=== PATIENT | male | born 1975 | race Hispanic/Latino ===

== ENCOUNTER 2017-01-14 05:18 | Observation (INO) | payer OTHER ==
--- NOTE | 2017-01-14 06:11 | ED PDOC ---
Upper Extremity Pain/Injury Time Seen by Provider: 01/14/17 05:30 Chief Complaint (Nursing): Upper Extremity Problem/Injury Chief Complaint (Provider): left elbow pain History Per: Patient History/Exam Limitations: no limitations Onset/Duration Of Symptoms: Hrs Current Symptoms Are (Timing): Still Present Additional Complaint(s): 41yo male with hx of right shoulder surgery presents to the ED with c/o left elbow pain. 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 Pain became severe overnight so he called Dr. Morrissey who instructed patient to present to the ED. Patient has had MRI of elbow. Denies any other medical complaints. Past Medical History Reviewed: Historical Data, Nursing Documentation, Vital Signs Vital Signs: Last Vital Signs Temp 97.5 F L 01/14/17 05:38 Pulse 65 01/14/17 05:38 Resp 16 01/14/17 05:38 BP 131/85 01/14/17 05:38 Pulse Ox 99 01/14/17 05:38 - Medical History PMH: No Chronic Diseases - Surgical History Other surgeries: right shoulder - Family History Family History: States: No Known Family Hx - Social History Current smoker - smoking cessation education provided: No Ex-Smoker (has not smoked in the last 12 months): Yes Alcohol: None Drugs: Denies - Home Medications Home Medications: Ambulatory Orders Medication Instructions Recorded oxyCODONE/Acetaminophen [Percocet 1 ea PO Q6 PRN #20 tab 01/14/17 5/325 mg Tab] - Allergies Allergies/Adverse Reactions: Allergies Allergy/AdvReac Type Severity Reaction Status Date / Time No Known Allergies Allergy Verified 01/14/17 05:45 Review of Systems ROS Statement: Except As Marked, All Systems Reviewed And Found Negative Musculoskeletal: Positive for: Other (left elbow pain ) Physical Exam - Reviewed Nursing Documentation Reviewed: Yes Vital Signs Reviewed: Yes - Physical Exam Appears: Positive for: Well, No Acute Distress Head Exam: Positive for: ATRAUMATIC, NORMAL INSPECTION, NORMOCEPHALIC Skin: Positive for: Normal Color, Warm, Dry Eye Exam: Positive for: Normal appearance Neck: Positive for: Normal, Painless ROM, Supple Cardiovascular/Chest: Positive for: Regular Rate, Rhythm. Negative for: Murmur , Tachycardia Respiratory: Positive for: Normal Breath Sounds. Negative for: Wheezing, Respiratory Distress Gastrointestinal/Abdominal: Positive for: Normal Exam, Soft. Negative for: Tenderness Extremity: Positive for: Normal ROM. Negative for: Deformity, Swelling Neurologic/Psych: Positive for: Alert, Oriented - Laboratory Results Result Diagrams: 01/14/17 06:20 01/14/17 06:20 - ECG O2 Sat by Pulse Oximetry: 99 Pulse Ox Interpretation: Normal (RA) Medical Decision Making Medical Decision Makin: Impression: left elbow pain Plan: Type and screen Labs EKG ortho consult reassess 06: Dr. Morrissey paged twice. Provider was advised that Dr. Morrissey called earlier stating patient will be operated on today. 624: Case discussed with Dr. Cervantes (hospitalist) for admission to med-surg. Dr. Cervantes accepted the patient. Scribe Attestation: Documented by Ki Alvarez acting as a scribe for Dann Solis MD. Provider Scribe Attestation: All medical record entries made by the Scribe were at my direction and personally dictated by me. I have reviewed the chart and agree that the record accurately reflects my personal performance of the history, physical exam, medical decision making, and the department course for this patient. I have also personally directed, reviewed, and agree with the discharge instructions and disposition. Disposition - Clinical Impression Clinical Impression: Elbow pain - Patient ED Disposition Is Patient to be Admitted: Yes Counseled Patient/Family Regarding: Studies Performed, Diagnosis - Disposition Disposition Time: 06:25 Condition: FAIR
[2017-01-14 06:39] LABS: BASO # 0.1 K/uL (0.0-0.2); BASO % 0.8 % (0.0-2.0); EOS # 0.7 K/uL (0.0-0.7); EOS % 8.1 % (0.0-4.0); HEMATOCRIT 46.6 % (35.0-51.0); LYMPH # 2.1 K/uL (1.0-4.3); LYMPH % 25.6 % (20.0-40.0); MEAN CELL VOLUME 87.4 fl (80.0-94.0); MEAN CORPUSCULAR HEMOGLOBIN 29.3 pg (27.0-31.0); MEAN CORPUSCULAR HGB CONC 33.5 g/dL (33.0-37.0); MEAN PLATELET VOLUME 10.7 fl (7.2-11.7); MONO # 0.5 K/uL (0.0-0.8); MONO % 6.2 % (0.0-10.0); NEUT % 59.3 % (50.0-75.0); RED CELL DISTRIBUTION WIDTH 12.8 % (11.5-14.5); WHITE BLOOD COUNT 8.4 K/uL (4.8-10.8)
[2017-01-14 06:52] LABS: ALB/GLOB RATIO 1.5 (1.0-2.1); ALKALINE PHOSPHATASE 64 U/L (38-126); ALT/SGPT 55 U/L (21-72); AST/SGOT 47 U/L (17-59); BILIRUBIN,TOTAL 0.6 mg/dl (0.2-1.3); BLOOD UREA NITROGEN 26 mg/dl (9-20); CALCIUM 9.6 mg/dL (8.4-10.2); CARBON DIOXIDE 27 mmol/L (22-30); CHLORIDE 106 mmol/L (98-107); GFR AFRICAN-AMERICAN > 60; GLUCOSE,RANDOM 95 mg/dL (75-110); POTASSIUM 4.4 MMOL/L (3.6-5.0); SODIUM 142 mmol/l (132-148); TOTAL PROTEIN 7.8 G/DL (6.3-8.2)
[2017-01-14] MEDS ORDERED: Absorbable Gelatin Sponge Size 100 ONE (07:04)
[2017-01-14] MEDS ORDERED: Bupivacaine 0.5% Inj(30mL) ONE (07:04)
[2017-01-14] MEDS ORDERED: Lidocaine 1% Inj (20ml) ONE (07:04)
[2017-01-14] MEDS ORDERED: Thrombin Topical 5,000 IU Spray Kit ONE (07:04)
[2017-01-14] MEDS ORDERED: Bacitracin Ointment 30 GM TUBE ONE (07:05)
[2017-01-14] MEDS ORDERED: Propofol 10 mg/ml Inj (20 ML) ONE ×2 (07:09→07:50)
[2017-01-14 07:11] LABS: PARTIAL THROMBOPLASTIN TIME 32.7 Seconds (25.6-37.1)
[2017-01-14] MEDS ORDERED: ePHEDrine 50 mg/ml Inj ONE (07:11)
[2017-01-14] MEDS ORDERED: Midazolam 2 MG/2 ML VIAL ONE (07:11)
[2017-01-14] MEDS ORDERED: Rocuronium 10 mg/ml (5 ml) ONE (07:11)
[2017-01-14] MEDS ORDERED: Succinylcholine 200 mg/10 ml Inj IV ONE (07:12)
--- NOTE | 2017-01-14 07:30 | ED PDOC ---
Upper Extremity Pain/Injury Time Seen by Provider: 01/14/17 05:44 Chief Complaint (Nursing): Upper Extremity Problem/Injury Additional Complaint(s): 41 YO M w/ no significant PMH is here today for pain in his right bicep region on his left arm. 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 At that point he was in pain and took some alieve. He went and saw Dr. Caceres on which examined him. Patient has been NPO since last night PMH PSH: Right sholder:> Right rotator cuff injury, Labrum tear Allergy: NKDA Medicine: None F/H: FH of DM in his father S/H: Reformed smoker Past Medical History Vital Signs: Last Vital Signs Temp 97.5 F L 01/14/17 05:38 Pulse 65 01/14/17 05:38 Resp 16 01/14/17 05:38 BP 131/85 01/14/17 05:38 Pulse Ox 99 01/14/17 06:53 - Medical History PMH: No Chronic Diseases Denies: Kidney Stones, Chronic Kidney Disease - Surgical History Other surgeries: right shoulder - Family History Family History: States: No Known Family Hx - Social History Current smoker - smoking cessation education provided: No Ex-Smoker (has not smoked in the last 12 months): Yes Alcohol: None Drugs: Denies - Allergies Allergies/Adverse Reactions: Allergies Allergy/AdvReac Type Severity Reaction Status Date / Time No Known Allergies Allergy Verified 01/14/17 05:45 - Laboratory Results Result Diagrams: 01/14/17 06:20 01/14/17 06:20 - ECG O2 Sat by Pulse Oximetry: 99 Disposition - Disposition Disposition Time: 06:25
[2017-01-14] MEDS ORDERED: Scopolamine 1.5 mg/24 hr Patch TD ONE (07:40)
[2017-01-14] MEDS ORDERED: Lactated Ringer's 1,000 ML IV ONE ×2 (07:45→10:00)
[2017-01-14] MEDS ORDERED: Dexamethasone 4 mg/1 ml ONE (08:03)
[2017-01-14] MEDS ORDERED: Desflurane Inhalation Anesthetic Liq (240 ml) ONE (09:06)
--- NOTE | 2017-01-14 09:50 | CP.PCM.HP ---
<AdwoaKeaton - Last Filed: 01/14/17 10:10> History of Present Illness - History of Present Illness History of Present Illness: 41 YO M w/ no significant PMH is here today for pain in his left bicep region on his left arm. Progressive arm pain which failed outpatient therapy. On patient was lifting a large platform at home approx 350 pounds when he noticed a snap in his left bicep region. At that point he was in pain and took some alieve. He went and saw Dr. Caceres on 01/15/17 which examined him. Patient has been NPO since last night. PMH: None PSH: Right sholder:> Right rotator cuff injury, Labrum tear Allergy: NKDA Medicine: None F/H: FH of DM in his father S/H: Reformed smoker Present on Admission - Present on Admission Any Indicators Present on Admission: No Review of Systems - Review of Systems All systems: reviewed and no additional remarkable complaints except Past Patient History - Past Medical History & Family History Past Medical History?: No - Past Social History Smoking Status: Former Smoker - PULMONARY Hx Respiratory Disorders: No - NEUROLOGICAL Hx Neurological Disorder: No - HEENT Hx HEENT Problems: No - RENAL Hx Chronic Kidney Disease: No Hx Kidney Stones: No - ENDOCRINE/METABOLIC Hx Endocrine Disorders: No - HEMATOLOGICAL/ONCOLOGICAL Hx Blood Disorders: No - INTEGUMENTARY Hx Dermatological Problems: No - MUSCULOSKELETAL/RHEUMATOLOGICAL Hx Musculoskeletal Disorders: No - GASTROINTESTINAL Hx Gastrointestinal Disorders: No - GENITOURINARY/GYNECOLOGICAL Hx Genitourinary Disorders: No - PSYCHIATRIC Hx Psychophysiologic Disorder: No Hx Substance Use: No - SURGICAL HISTORY Hx Surgeries: Yes Other/Comment: right shoulder - ANESTHESIA Hx Anesthesia: Yes Hx Anesthesia Reactions: No Meds Allergies/Adverse Reactions: Allergies Allergy/AdvReac Type Severity Reaction Status Date / Time No Known Allergies Allergy Verified 01/14/17 05:45 Physical Exam - Constitutional Appears: No Acute Distress - Head Exam Head Exam: NORMAL INSPECTION - Eye Exam Eye Exam: Normal appearance - Respiratory Exam Respiratory Exam: Clear to Auscultation Bilateral, NORMAL BREATHING PATTERN - Cardiovascular Exam Cardiovascular Exam: REGULAR RHYTHM, +S1, +S2 - GI/Abdominal Exam GI & Abdominal Exam: Normal Bowel Sounds, Soft. absent: Tenderness - Rectal Exam Rectal Exam: NORMAL INSPECTION - Extremities Exam Extremities exam: Positive for: normal inspection Additional comments: Normal range of motion. Bruise noticed on the medial portion of the left bicep. - Neurological Exam Neurological exam: Alert, CN II-XII Intact, Normal Gait, Oriented x3 - Skin Additional comments: Bruise on medial portion of left bicep Results - Vital Signs Recent Vital Signs: Last Vital Signs Temp 97.5 F L 01/14/17 07:30 Pulse 78 01/14/17 07:30 Resp 20 01/14/17 07:30 BP 128/78 01/14/17 07:30 Pulse Ox 98 01/14/17 07:30 - Labs Result Diagrams: 01/14/17 06:20 01/14/17 06:20 Assessment & Plan - Assessment and Plan (Free Text) Assessment: 1) Left arm injury secondary to injury - MRI shows complete distal bicep rupture. - Dr. Morrissey on consult - Failed outpatient management. - Continue with pain management and physiotherapy and follow ortho recommendations - Currently NPO <Syl Marshall - Last Filed: 01/14/17 14:23> Results - Vital Signs Recent Vital Signs: Last Vital Signs Temp 97.8 F 01/14/17 12:45 Pulse 83 01/14/17 12:45 Resp 18 01/14/17 12:45 BP 141/88 01/14/17 12:45 Pulse Ox 99 01/14/17 13:05 - Labs Result Diagrams: 01/14/17 06:20 01/14/17 06:20 Attending/Attestation - Attestation I have personally seen and examined this patient.: Yes I have fully participated in the care of the patient.: Yes I have reviewed all pertinent clinical information: Yes
[2017-01-14] MEDS ORDERED: Morphine 1 mg/ml preservative-free Inj(Duramorph) ONE (10:20)
[2017-01-14] MEDS ORDERED: Bacitracin OINT 15GM TOP ONE (10:30)
[2017-01-14] MEDS ORDERED: Morphine 1 mg/ml preservative-free Inj(Duramorph) IV ONE (10:30)
[2017-01-14] MEDS ORDERED: Bupivacaine 0.5% 50 ML IJ ONE (10:30)
--- NOTE | 2017-01-14 10:44 | RAD ---
HISTORY: preop COMPARISON: None available. TECHNIQUE: Chest, one view. FINDINGS: Examination limited by habitus. LUNGS: No focal consolidation. Please note that chest x-ray has limited sensitivity for the detection of pulmonary masses. PLEURA: No significant pleural effusion identified. No definite pneumothorax . CARDIOVASCULAR: Borderline cardiomegaly. OSSEOUS STRUCTURES: No acute osseous abnormality identified. VISUALIZED UPPER ABDOMEN: Unremarkable. OTHER FINDINGS: None. IMPRESSION: Borderline cardiomegaly. No focal consolidation, significant pleural effusion, or definite pneumothorax identified.
[2017-01-14] MEDS ORDERED: Lactated Ringer's 1,000 ML IV SCH (11:02)
[2017-01-14] MEDS ORDERED: DiphenhydrAMINE 50 mg/ml Inj IVP PRN (11:02)
[2017-01-14] MEDS ORDERED: HYDROmorphone 0.5 mg/0.5 ml ISec IVP PRN (11:02)
[2017-01-14] MEDS ORDERED: DiphenhydrAMINE 50 mg/ml Inj ONE (11:09)
[2017-01-14 12:08] VITALS: RESP 18; O2SAT 99
--- NOTE | 2017-01-14 12:38 | RAD ---
Indication: S/P bicep tendon repair Left elbow radiographs Comparison: None available Findings: Soft tissue swelling and subcutaneous emphysema consistent with recent postsurgical history. A small metallic clip projects over the proximal radius, presumably postsurgical. Images were obtained with a splint present. No acute displaced fracture or dislocation identified. Impression: Postsurgical appearance as above.
[2017-01-14 13:05] VITALS: BP 141/88; PULSE 83; TEMP 97.8
--- NOTE | 2017-01-14 16:25 | PCM.SURG1 ---
Surgeon's Initial Post Op Note - Surgeon's Notes Surgeon: Yuni [employer] Access Developer: JONE Hopkins Type of Anesthesia: General Endo Anesthesia Administered By: Dr Parker Pre-Operative Diagnosis: Biceps tendon rupture L elbow. \ Operative Findings: Biceps tendon rupture. Rupture lacertus fibrosus Post-Operative Diagnosis: Biceps tendon rupture L. laceration lacertus fibrosus. compression lateral femoral cutaneous nerve Operation Performed: Primary repair biceps tnedon rupture. repair lacertus fibrosus. exploration/neurolysis-lateral antebrachial cutaneous nerve. applx long arm splint. positioning of fluoro/interpretation of video Specimen/Specimens Removed: tendon/hemorrhage Estimated Blood Loss: EBL {In ML}: 15 Blood Products Given: N/A Drains Used: No Drains Post-Op Condition: Good Date of Surgery/Procedure: 01/14/17 Time of Surgery/Procedure: 08:50 (time in room/anaesthesia induction time)
--- NOTE | 2017-01-14 19:19 | CARD ---
APPROVED REPORT EKG Measurement Heart [id number] ID [id number] <Conclusion> Sinus bradycardia with sinus arrhythmia Incomplete right bundle branch block Borderline ECG
--- NOTE | 2017-01-15 12:29 | RAD ---
PROCEDURE: Intraoperative Fluoroscopy. HISTORY: LEFT ARM TENDON REPAIR FINDINGS: Fluoroscopic assistance was provided. Approximately 15.9 seconds of fluoroscopy time utilized for this procedure. Radiation dose = 0.38 mGy. Please refer to the operative report for additional details.
--- NOTE | 2017-01-17 17:30 | PCM.OP ---
Operative Report - Operative Report Date of Surgery/Procedure: 01/14/17 Time of Surgery/Procedure: 09:45 (time in room/anaesthesia induction time-850) Surgeon: Yuni Development Technologist: JONE Hopkins Anesthesia/Sedation: Dr Nathalia Parker Pre-Operative Diagnosis: Rupture distal biceps tendon L elbow Post-Operative Diagnosis: as above. laceration lacertus fibsosus. \\ compression lateral antebrachial cutaneous nerve Indication for Surgery: pt noted "pop" presents to ER/ dxed rupture distal biceps tendon/ pt admitted for emegency surgery Operative Findings: rupture distal biceps tendon. laceratuion lacertus fibrosus. compression lateral antebrachial cutaneous nerve Procedure/Operation Description: of flexion.dictating the operative procedure for patient Andria Moreno. Operative indication: Adnria Moreno is a gentleman who presents after a traumatic injury to the left elbow. The patient was lifting an object noted a'pop' with immediate swelling and numbness and tingling. The patient presents to the emergency room at [facility] diagnosis is rendered patient was admitted for emergency surgery. Operative procedure: After obtaining informed consent s, after the satisfactory induction of general endotracheal anesthesia, after having identified side and site and procedure, the left upper extremity is prepped and draped in the usual fashion for distal biceps tendon surgery. the tourniquet had been applied but is not yet inflated. Under the surgeon's direction, the fluoroscope was positioned images were obtained and therapeutic decisions were made there from. After sterile prepping and draping the left upper extremity the tourniquet which had been applied was inflated to 250 mmHg. An incision was described transversely 3 fingerbreadths distal to the elbow crease. The skin incision was carried down through skin and subcutaneous tissue. The lacertus fibrosis is identified and was found to be torn. At this point in time dissection was carried out with a hemostat. The distal biceps tendon is identified. It was retrieved and brought into the wound. There is found to be evidence of a seroma. This is offering compression to the lateral antebrachial cutaneous nerve. the seroma is evacuated.aat this point in time, with the elbow flexed the distal 2.5 cm of the tendon is debrided sharply using a #15 blade. This having been accomplished a modified baseball stitch was accomplished using the prefab gathering suture device. At this point in time the lateral antebrachial cutaneous nerve is carefully dissected and neurolysis and decompression was accomplished. The distal aspect of the tendon is placed in a Ray-Anjum sponge and moistened. This time the interval was developed exposing the radial tuberosity. The tuberosity was located by pronation and supination. At this point in time the fluoroscope was positioned and the radial tuberosity is identified. The 3.5 drill bit is entered with the forearm in supination to protect the radial nerve. With this accomplished with the 8 mm reamer over the pin. The pin travels bicortically while the 8 mm reamer is unicortical. This having been accomplished, the elliptical button is noted with the suture from the end of the biceps tendon. This is inserted through the drill hole with the elbow in 40 of flexion.by walking the ends of the suture into the reamed cavity the tendon was advanced. The button flips and becomes secure agaist the far cortex, oifffering immediate stability. At this point in time when sutures placed with a free needle through local tissue offering secondary fixation. Tertiary fixation was accomplished by using a 7 mm peek anchor. The suture was placed through the guide and inserting device coupling with a peak anchor. The peek anchors advanced and secured tertiary fixation is accompklished. the lacertus fibrosus is repaired with interrupted sutures. neurolysis and decompression of the lateral antebrachial cutaneous nerve has been accomplished. Wound isthoroughly irrigated. Closure is in layers with interrupted vicryl and Quill. Abdelrahman Silva compression drssing an dposterior spl,int is apllied. Intraarticular injection of marcaine is accomplidhes after closure but priop to applx of long arm splint. This is in the operative note on the patient and Andria Moreno the patient is evaluated in recovery but complaining of some numbness on the dorsal aspect of the hand and in the area of the extensor pollicis longus. This is most likely due to some st combined with postop intra-articularlocal anesthetic. Dictating date of surgery 2016 Estimated Blood Loss: 15 cc Blood Replaced: 0 Sponge/Instrument Count: correct Drains: 0 Complications: none Specimen: tenosynoviumj/scar tissue/tendonj Discharge & Condition: stable/ pt with some hypoesthesia on d/c;pt evaluated in same day surtg prior to d/c
== END 2017-01-14 14:05 | disposition home or self-care (01) ==
LOC: H.ER 05:18 → H.ERHOLD 06:25 → INTOOBSV 06:25 → OBSVTOIN 06:25
PROVIDERS: ADMIT Internal Medicine; ATTEND Internal Medicine
DX: S46.212A Strain of muscle, fascia and tendon of other parts of biceps, left arm, initial encounter (principal); Z87.891 Personal history of nicotine dependence; X50.0XXA Overexertion from strenuous movement or load, initial encounter; Y92.9 Unspecified place or not applicable